=== PATIENT | female | born 1970 | race African-American/Black ===

== ENCOUNTER 2022-07-04 13:51 | Emergency (ER) | payer OTHER ==
[2022-07-04] MEDS ORDERED: Ketorolac Tromethamine 30 MG/ML VIAL ONE (15:07)
== END 2022-07-04 15:25 | disposition home or self-care (01) ==
LOC: CSHERS 13:51
DX: K08.89 Other specified disorders of teeth and supporting structures (principal); E11.9 Type 2 diabetes mellitus without complications; I11.0 Hypertensive heart disease with heart failure; I50.9 Heart failure, unspecified
CPT/HCPCS: 96372; 99282; J1885